=== PATIENT | female | born 1990 | race Caucasian/White ===

== ENCOUNTER 2017-06-01 20:48 | Emergency (ER) | payer MEDICAID, OTHER, SELFPAY ==
[~2017-06-01] VITALS: Ht 162.6 cm; Wt 71.2 kg
[2017-06-01 21:08] VITALS: BP 108/71
== END 2017-06-01 22:22 | disposition home or self-care (01) ==
LOC: ED 22:16
DX: J02.8 Acute pharyngitis due to other specified organisms (principal); B97.89 Other viral agents as the cause of diseases classified elsewhere; F17.200 Nicotine dependence, unspecified, uncomplicated
CPT/HCPCS: 87081; 87880; 99284

== ENCOUNTER 2017-12-12 21:31 | Emergency (ER) | payer MEDICAID ==
[~2017-12-12] VITALS: Ht 162.6 cm; Wt 69.5 kg
[2017-12-12 21:32] VITALS: BP 108/73
[2017-12-12] MEDS ORDERED: ACETAMINOPHEN 500 MG TABLET PO ONE (22:30)
[2017-12-12] MEDS ORDERED: LIDOCAINE 1%, 20ML SQ ONE (22:30)
[2017-12-12] MEDS ORDERED: LIDOCAINE 1%, 20ML ONE (22:38)
[2017-12-12] MEDS ORDERED: ACETAMINOPHEN 500 MG TABLET ONE (23:09)
== END 2017-12-12 23:42 | disposition home or self-care (01) ==
LOC: ED 23:40
DX: S01.01XA Laceration without foreign body of scalp, initial encounter (principal); F17.200 Nicotine dependence, unspecified, uncomplicated; W01.0XXA Fall on same level from slipping, tripping and stumbling without subsequent striking against object, initial encounter; Y93.89 Activity, other specified; Y92.009 Unspecified place in unspecified non-institutional (private) residence as the place of occurrence of the external cause; Y99.8 Other external cause status
CPT/HCPCS: 12001; 99283

== ENCOUNTER 2020-09-26 18:57 | Emergency (ER) | payer MEDICAID ==
[~2020-09-26] VITALS: Ht 162.6 cm; Wt 91.3 kg
[2020-09-26 20:07] LABS: MICROSCOPIC INDICATED
[2020-09-26 20:25] LABS: CLUE CELLS NONE SEEN (NONE SEEN)
[2020-09-26 20:26] LABS: WET PREP WBCS FEW (FEW)
[2020-09-26 20:27] VITALS: BP 96/55
--- NOTE | 2020-09-26 20:30 | NUR ---
US AT BEDSIDE.
[2020-09-26] MEDS ORDERED: AZITHROMYCIN 500 MG TABLET ONE (20:49)
[2020-09-26] MEDS ORDERED: CEFTRIAXONE 250 MG ONE (20:49)
[2020-09-26] MEDS ORDERED: AZITHROMYCIN 500 MG TABLET PO ONE (21:00)
[2020-09-26] MEDS ORDERED: CEFTRIAXONE 250 MG IM ONE (21:00)
--- NOTE | 2020-09-26 21:03 | NUR ---
REPORT RECEIVED FROM TONO JEWELL. ASSUMED CARE OF PT
[2020-09-26 21:19] LABS: BASOPHILS % (AUTO) 0 % (0-1); EOSINOPHILS % (AUTO) 1 % (1-7); LYMPHOCYTES % (AUTO) 15 % (22-44); MEAN CORPUSCULAR HEMOGLOBIN 30.3 pg (27.0-34.8); MEAN CORPUSCULAR HGB CONC 33.7 g/dL (32.4-35.8); MEAN PLATELET VOLUME 7.4 fL (7.4-10.4); MONOCYTES % (AUTO) 15 % (2-9); NEUTROPHILS % (AUTO) 69 % (42-75); PLATELET COUNT 328 x10^3/uL (130-400); RED BLOOD COUNT 3.65 x10^6/uL (3.82-5.3); RED CELL DISTRIBUTION WIDTH 13.6 % (9.6-15.2)
[2020-09-26 21:25] LABS: ALANINE AMINOTRANSFERASE 54 U/L (12-78); ALBUMIN 3.2 g/dL (3.4-5.0); ANION GAP 7 mmol/L (5-15); CALCIUM 8.5 mg/dL (8.5-10.1); CHLORIDE 105 mmol/L (98-107)
[2020-09-26 21:27] LABS: ALKALINE PHOSPHATASE 153 U/L (45-117); BILIRUBIN,TOTAL 0.2 mg/dL (0.2-1.0); TOTAL PROTEIN 7.7 g/dL (6.4-8.2)
[2020-09-26 22:00] LABS: MD SCAN
--- NOTE | 2020-09-26 22:04 | NUR ---
Patient/Caregiver given discharge instructions and they have confirmed that they understand the instructions. Patient ambulatory with steady gait.
== END 2020-09-26 22:06 | disposition home or self-care (01) ==
LOC: ED 19:41
DX: S39.012A Strain of muscle, fascia and tendon of lower back, initial encounter (principal); Z20.828 Contact with and (suspected) exposure to other viral communicable diseases; R07.89 Other chest pain; N30.00 Acute cystitis without hematuria; N76.0 Acute vaginitis; R10.9 Unspecified abdominal pain; R51.9 Headache, unspecified; R06.00 Dyspnea, unspecified; R20.0 Anesthesia of skin; Z88.9 Allergy status to unspecified drugs, medicaments and biological substances; Z90.49 Acquired absence of other specified parts of digestive tract; X58.XXXA Exposure to other specified factors, initial encounter; Y93.89 Activity, other specified; Y92.89 Other specified places as the place of occurrence of the external cause; Y99.8 Other external cause status
CPT/HCPCS: 36415; 76770; 80053; 81001; 84703; 85025; 87077; 87086; 87186; 87210; 87491; 87591; 87635; 87808; 93005; 96372; 99285; J0696